=== PATIENT | male | born 2000 | race Caucasian/White ===

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

== ENCOUNTER → 2020-07-25 | Outpatient (CLI) | payer BC ==
[~2020-07-25] MED LIST changes: +ALBU83IN NEB; +AMOX875T2; +DOXY100C37 PO; +PROAAER10 INH
--- NOTE | 2020-07-25 12:33 | REPPI ---
INDICATION: FALL WITH PAIN AFTERWARD COMPARISON: None. TECHNIQUE: Five views left knee. FINDINGS: There is no evidence of acute fracture, dislocation, or intrinsic bone disease.The joint spaces are unremarkable. There is no definite radiographic evidence of a joint effusion. IMPRESSION: No fracture or dislocation. <Electronically signed by Jose Maria Ramon > 07/25/20 [id number]
== END ==
LOC: M PLAIMG 11:34
PROVIDERS: ATTEND Physician Assistant
DX: M25.562 Pain in left knee (principal); W19.XXXA Unspecified fall, initial encounter; Y92.9 Unspecified place or not applicable

== ENCOUNTER 2020-12-10 10:50 | Outpatient (RCR) | payer BC, OTHER ==
[~2020-12-10 10:50] MED LIST changes: -DOXY100C37 PO; +DOXY1CAP62 PO
== END 2020-12-12 ==
LOC: M OT 10:50
PROVIDERS: ATTEND Physician Assistant
DX: S06.0X0D Concussion without loss of consciousness, subsequent encounter (principal); X58.XXXD Exposure to other specified factors, subsequent encounter

== ENCOUNTER 2021-01-11 10:58 | Outpatient (RCR) | payer OTHER ==
[~2021-01-11 10:58] MED LIST changes: +DOXY-443 PO; -DOXY1CAP62 PO
== END 2021-01-12 ==
LOC: M OT 10:58
PROVIDERS: ATTEND Physician Assistant
DX: S06.0X0D Concussion without loss of consciousness, subsequent encounter (principal)

== ENCOUNTER 2021-02-08 10:00 | Outpatient (RCR) | payer OTHER ==
[~2021-02-08 10:00] MED LIST changes: -DOXY-443 PO; +DOXY1CAP62 PO
== END 2021-02-12 ==
LOC: M ST 10:00
PROVIDERS: ATTEND Physician Assistant
DX: S06.0X0D Concussion without loss of consciousness, subsequent encounter (principal)

== ENCOUNTER 2021-03-01 09:58 | Outpatient (RCR) | payer OTHER | END 2021-03-14 | LOC: M ST 09:58 | PROVIDERS: ATTEND Physician Assistant | DX: S06.0X0D Concussion without loss of consciousness, subsequent encounter (principal); W18.30XD Fall on same level, unspecified, subsequent encounter; Y92.009 Unspecified place in unspecified non-institutional (private) residence as the place of occurrence of the external cause ==

== ENCOUNTER → 2022-08-06 | Outpatient (CLI) | payer OTHER ==
[~2022-08-06] MED LIST changes: +ALBU2.5V10 NEB; -ALBU83IN NEB; +DOXY-443 PO; -DOXY1CAP62 PO
== END ==
LOC: M PLAIMG 07:26
PROVIDERS: ATTEND Physician Assistant
DX: S06.9XAD Unspecified intracranial injury with loss of consciousness status unknown, subsequent encounter (principal); R51.9 Headache, unspecified